=== PATIENT | female | born 1950 | race Caucasian/White ===

== ENCOUNTER → 2023-11-22 15:10 | Outpatient (REF) | payer MEDICARE, BC, SELFPAY | LOC: WDC 15:10 | PROVIDERS: ATTENDING PHYSICIAN Nurse Practitioner Adult Health | DX: Z12.31 Encounter for screening mammogram for malignant neoplasm of breast (principal) | CPT/HCPCS: 77063; 77067 ==

== ENCOUNTER 2024-03-24 14:29 | Emergency (ER) | payer OTHER, SELFPAY ==
[2024-03-24 14:34] VITALS: BP 134/79
--- NOTE | 2024-03-24 14:59 | ED.GENMED ---
ED Provider Triage
<Angie Abdalla SAS DEVELOPER - Last Filed: 03/24/24 15:02>
-
Patient seen by provider in Triage?: Seen in Triage
Attestation: A medical screening examination has been initiated by a qualified medical provider. Based on the assessment performed at this time, it has been determined that an emergent medical condition may exist and the patient has been informed
that further medical evaluation and possible additional diagnostic testing may be needed.
HPI: 74-year-old female with history of HTN, HLD, GERD, presents for shortness of breath for the past 3 days, it came and went but today after breakfast is persistent and feels 'tight in my chest.'
Did have some nausea and diarrhea last week but that has resolved. Denies fever.
GENERAL: Alert , in no apparent distress
EYE: No visual abnormalities.
NECK: Trachea midline
ENT: No visible abnormalities.
LUNGS: No acute respiratory distress
NEUROLOGICAL: Alert and oriented
SKIN: Skin intact. No visible changes.
MUSCULOSKELETAL: Moving extremities normally
PSYCH: Normal and appropriate interaction.
This is a medical evaluation conducted in person to initiate diagnostic evaluation and provide initial therapeutics. Please see further documentation by the treating clinician.
History of Present Illness
<Angie Abdalla SAS DEVELOPER - Last Filed: 03/24/24 15:02>
General
Chief Complaint: Breathing Problem
Time Seen by Provider: 03/24/24 19:07
<Naomie Lemus MD - Last Filed: 03/24/24 19:19>
General
Source: patient
History of Present Illness
History of Present Illness:
74-year-old female who states that last week she had intermittent nausea and dizziness which is now resolved. However, for the past 3 days she has felt like 'I can breathe', but she is not in a deep breath. This is a sensation that is on and off.
She still been able to exercise without difficulty. She notes that she has had recent congestion and cough. She denies chest pain, palpitations, back pain, neck pain, headache, dizziness, fever, chills, leg swelling, recent mobilization, recent
trauma, cancer diagnosis, history of DVT in her family members, or other complaints. ED provider triage note reviewed in which time she described feeling 'tight' in her chest, patient denies this to me.
Past History
<Angie Abdalla SAS DEVELOPER - Last Filed: 03/24/24 15:02>
Past History
ED Past Medical History: None
ED Past Surgical History: None
Social History
Tobacco: Non-smoker
Alcohol: None
Drug: None
Personal:
Living: with family
<Naomie Lemus MD - Last Filed: 03/24/24 19:19>
Past History
ED Past Medical History: Other (Mild hypertension)
Social History
Tobacco: Former smoker
Phy Exam
<Naomie Lemus MD - Last Filed: 03/24/24 19:19>
Physical Exam
Physical Exam:
GENERAL: Alert , in no apparent distress, nontoxic, pleasant, walked up and down emergency department without tachypnea dyspnea or other symptoms
EYE: pupils equal and reactive
NECK: Supple, no significant adenopathy.
ENT: o/p clr, mmm.
CARDIAC: Regular rate and rhythm .
LUNGS: Clear breath sounds bilaterally, no acute respiratory distress, no wheezes/rales/rhonchi, speaks in full sentences easily
ABDOMEN: Soft, without focal tenderness, no r/g, no cvat
NEUROLOGICAL: Alert and oriented, no focal neuro deficits
SKIN: Warm and dry, skin intact.
MUSCULOSKELETAL: No edema, well perfused.
PSYCH: Normal and appropriate interaction.
Course
<Angie Abdalla SAS DEVELOPER - Last Filed: 03/24/24 15:02>
Orders/Labs/Results
Orders:
Orders
03/24/24 14:38
Electrocardiogram (*1) Urgent
Reason for Study: Shortness of Breath
EKG- Treatment ONCE
03/24/24 14:47
Complete Blood Count/With Diff Urgent
Comprehensive Metabolic Panel Urgent
Troponin I Urgent
03/24/24 15:01
CR Chest - 2 Views Urgent
Comment:
Reason For Exam: sob
Abnormal Lab Results
03/24/24
14:47
WBC 4.5 L 10^3/uL
(4.8-10.8)
MCH 31.8 H pg
(27.0-31.0)
Absolute Lymphs (auto) 1.1 L 10^3/uL
(1.2-3.4)
Monocytes % 10.0 H %
(1.7-9.3)
Eosinophils % 6.2 H %
(0-6)
BUN 21 H mg/dl
(7-17)
03/24/24 14:47
03/24/24 14:47
Vital Signs
Initial and Last Documented VS:
Initial Vital Signs
Temp Pulse Resp BP Pulse Ox
98.2 F 69 18 134/79 99
03/24/24 14:34 03/24/24 14:34 03/24/24 14:34 03/24/24 14:34 03/24/24 14:34
Last Documented Vital Signs
Temp Pulse Resp BP Pulse Ox
98.2 F 69 18 134/79 99
03/24/24 14:34 03/24/24 14:34 03/24/24 14:34 03/24/24 14:34 03/24/24 14:34
<Naomie Lemus MD - Last Filed: 03/24/24 19:19>
Orders/Labs/Results
Orders:
Orders
03/24/24 14:38
Electrocardiogram (*1) Urgent
Reason for Study: Shortness of Breath
EKG- Treatment ONCE
03/24/24 14:47
Complete Blood Count/With Diff Urgent
Comprehensive Metabolic Panel Urgent
Troponin I Urgent
03/24/24 15:01
CR Chest - 2 Views Urgent
Comment:
Reason For Exam: sob
Abnormal Lab Results
03/24/24
14:47
WBC 4.5 L 10^3/uL
(4.8-10.8)
MCH 31.8 H pg
(27.0-31.0)
Absolute Lymphs (auto) 1.1 L 10^3/uL
(1.2-3.4)
Monocytes % 10.0 H %
(1.7-9.3)
Eosinophils % 6.2 H %
(0-6)
BUN 21 H mg/dl
(7-17)
03/24/24 14:47
03/24/24 14:47
Vital Signs
Initial and Last Documented VS:
Initial Vital Signs
Temp Pulse Resp BP Pulse Ox
98.2 F 69 18 134/79 99
03/24/24 14:34 03/24/24 14:34 03/24/24 14:34 03/24/24 14:34 03/24/24 14:34
Last Documented Vital Signs
Temp Pulse Resp BP Pulse Ox
98.2 F 69 18 134/79 99
03/24/24 14:34 03/24/24 14:34 03/24/24 14:34 03/24/24 14:34 03/24/24 14:34
<Naomie Lemus MD - Last Filed: 03/24/24 19:19>
Update Note
Update Note:
Patient presents to the Emergency Department with feeling like she is not taking a full breath
Number and Complexity of Problems Addressed at the Encounter
� Chronic conditions affecting care:
� Acute Exacerbation and/or Progression of Chronic Illness:
� Differential Diagnosis includes: But not limited to URI, allergies, bronchitis, PE, pneumonia, etc. etc.
Amount and/or Complexity of Data to be Reviewed and Analyzed
� I performed an independent evaluation of and my interpretation is:
EKG: Read by me, normal sinus rhythm, LAD, no acute ischemia
CT:
Xrays: Read by me, NAD
Laboratory Studies: Generally unremarkable
Other:
� Review of other/old records reveals:
� Clinical information was obtained by an independent historian:
� Prescriptions/Medications Considered but not given:
� Further testing considered but not performed:
Risk of Complications and/or Morbidity or Mortality of Patient Management
� Social determinants of health affecting care:
� Discussion with other providers (PCP, Hospitalists, Consultants, etc):
� Escalation of care including admission/observation vs risk of discharge considered: 7:15 PM patient walked almost the full length of the emergency department and back without any symptoms. Her repeat pulse ox was normal. No
tachycardia, hypoxia, or other signs or symptoms to suggest PE. Highly doubt ACS. Recommend patient follow-up with her primary care doctor and start an antihistamine. She is very comfortable with this plan
ED Attending Note
<Angie Abdalla SAS DEVELOPER - Last Filed: 03/24/24 15:02>
-
Portions of this chart may have been created with voice recognition software.� Occasional wrong word or��sound alike� substitutions may have occurred due to the inherent limitations of voice recognition software.
Discharge Plan
Departure
Patient Disposition: Home (Routine Discharge)
Date of Disposition: 03/24/24
Time of Disposition: 19:18
Patient with high blood pressure during this ER visit?: Yes
Condition: Good
Discharge Problem:
Dyspnea
Instructions: Shortness of breath, BLOOD PRESSURE
Prescriptions:
No Action
amoxicillin-pot clavulanate 1 TABLET tablet
1 tab PO Q12 Qty: 20 0RF
Activity Restrictions/Additional Instructions:
PLEASE SEE YOUR FAMILY DOCTOR SCHEDULED ON SUNDAY. IF YOU DEVELOP INCREASING OR NEW SHORTNESS OF BREATH, FEVER, CHEST PAIN PRESSURE DISCOMFORT, DIZZINESS, ABDOMINAL PAIN, LEG SWELLING, OR OTHER WORRISOME SIGNS, PLEASE RETURN TO THE ER
IMMEDIATELY.
Interventions
Interventions:
*Risk Screen - Suicide Last Done: 03/24/24 14:34
*General Assessment Last Done: 03/24/24 14:34
*Neglect/Abuse Screening Last Done: 03/24/24 14:34
Discharge Date and Time
Print Language: [place]
[2024-03-24 15:11] LABS: % Basophils 0.9 % (0-2); % Eosinophils 6.2 % (0-6); % Lymphocytes 23.7 % (20.5-51.1); % Neutrophils 59.2 % (42.2-75.2); Absolute Eosinophils 0.3 10^3/uL (0-0.7); Absolute Lymphocytes 1.1 10^3/uL (1.2-3.4); Absolute Monocytes 0.5 10^3/uL (0.1-0.6); Absolute Neutrophils 2.7 10^3/uL (1.4-6.5); Hemoglobin 13.6 g/dL (12.0-16.0); Mean Corp Hgb Conc. 33.2 g/dL (33.0-37.0); Mean Corpuscular Hgb 31.8 pg (27.0-31.0); Mean Corpuscular Volume 95.8 fL (81.0-99.0); Mean Platelet Volume 9.4 fL (7.4-10.4); Nucleated Red Blood Cells % 0 %; Platelet Count 236 10^3/uL (130-400); Red Blood Cell Count 4.28 10^6/uL (4.20-5.40); Red Cell Dist. Width 13.2 % (11.5-14.5); White Blood Cell Count 4.5 10^3/uL (4.8-10.8)
[2024-03-24 15:22] LABS: ALT (SGPT) 21 U/L (0-35); AST (SGOT) 28 U/L (14-36); Albumin 4.5 g/dl (3.5-5.0); Alkaline Phosphatase 58 U/L (38-126); Blood Urea Nitrogen 21 mg/dl (7-17); Calcium 9.7 mg/dl (8.4-10.2); Carbon Dioxide 26 mmol/L (22-30); Chloride 103 mmol/L (98-107); Glucose 95 mg/dl (70-99); Potassium 4.6 mmol/L (3.5-5.1); Sodium 137 mmol/L (135-145); Total Bilirubin 0.8 mg/dl (0.2-1.3); Total Protein 6.9 g/dl (6.3-8.2); eGFR > 60.00
[2024-03-24 15:32] LABS: Troponin I < 0.012 ng/ml
[2024-03-24 19:14] VITALS: BP 152/86
== END 2024-03-24 19:22 | disposition home or self-care (01) ==
LOC: EMR 14:29
PROVIDERS: Registered Nurse; EMERGENCY PHYSICIAN Emergency Medicine; FAMILY PHYSICIAN Nurse Practitioner Adult Health
DX: R06.00 Dyspnea, unspecified (principal); E78.5 Hyperlipidemia, unspecified; I10 Essential (primary) hypertension; K21.9 Gastro-esophageal reflux disease without esophagitis
CPT/HCPCS: 99285; 71046; 80053; 84484; 85025; 93005

== ENCOUNTER → 2024-06-12 11:51 | Outpatient (REF) | payer OTHER, SELFPAY ==
[2024-06-12 16:45] LABS: % Basophils 0.7 % (0-2); % Eosinophils 2.5 % (0-6); % Immature Granulocytes 0.4 % (0-0.5); % Lymphocytes 12.1 % (20.5-51.1); % Monocytes 12.9 % (1.7-9.3); % Neutrophils 71.4 % (42.2-75.2); Absolute Basophils 0.1 10^3/uL (0-0.2); Absolute Eosinophils 0.2 10^3/uL (0-0.7); Absolute Lymphocytes 0.9 10^3/uL (1.2-3.4); Absolute Neutrophils 5.4 10^3/uL (1.4-6.5); Hemoglobin 14.4 g/dL (12.0-16.0); Mean Corp Hgb Conc. 32.7 g/dL (33.0-37.0); Mean Corpuscular Hgb 31.6 pg (27.0-31.0); Mean Corpuscular Volume 96.5 fL (81.0-99.0); Mean Platelet Volume 9.4 fL (7.4-10.4); Nucleated Red Blood Cells % 0 %; Platelet Count 299 10^3/uL (130-400); Red Blood Cell Count 4.56 10^6/uL (4.20-5.40); Red Cell Dist. Width 13.1 % (11.5-14.5); White Blood Cell Count 7.5 10^3/uL (4.8-10.8)
[2024-06-12 16:58] LABS: Erythrocyte Sed Rate 41 mm/hour (0-20)
== END ==
LOC: HWLAB 11:51
PROVIDERS: ATTENDING PHYSICIAN Physician Assistant Surgical; FAMILY PHYSICIAN Nurse Practitioner Adult Health
DX: M25.462 Effusion, left knee (principal)
CPT/HCPCS: 36415; 85025; 85652; 86140

== ENCOUNTER → 2024-06-27 06:35 | Outpatient (REF) | payer OTHER, SELFPAY | LOC: MRI 06:35 | PROVIDERS: ATTENDING PHYSICIAN Physician Assistant Surgical; FAMILY PHYSICIAN Nurse Practitioner Adult Health | DX: M25.462 Effusion, left knee (principal); Z96.653 Presence of artificial knee joint, bilateral | CPT/HCPCS: 73721 ==

== ENCOUNTER → 2024-07-03 12:51 | Outpatient (REF) | payer OTHER, SELFPAY | LOC: RCS 12:51 | PROVIDERS: ATTENDING PHYSICIAN Nurse Practitioner Adult Health | DX: R07.89 Other chest pain (principal) | CPT/HCPCS: 93017 ==

== ENCOUNTER → 2024-08-21 07:50 | Outpatient (REF) | payer OTHER, SELFPAY | LOC: RAD 07:50 | PROVIDERS: ATTENDING PHYSICIAN Nurse Practitioner Adult Health | DX: Z78.0 Asymptomatic menopausal state (principal) | CPT/HCPCS: 77080 ==

== ENCOUNTER 2024-10-23 06:14 | Day surgery (SDC) | payer OTHER, SELFPAY | END 2024-10-23 08:27 | disposition home or self-care (01) | LOC: GI 06:14 | PROVIDERS: ATTENDING PHYSICIAN Internal Medicine Gastroenterology | DX: Z12.11 Encounter for screening for malignant neoplasm of colon (principal); K57.30 Diverticulosis of large intestine without perforation or abscess without bleeding; K64.8 Other hemorrhoids; K63.5 Polyp of colon; Z86.0100 Personal history of colon polyps, unspecified | CPT/HCPCS: 45380; 88305 ==

== ENCOUNTER → 2024-11-26 15:38 | Outpatient (REF) | payer OTHER, SELFPAY | LOC: WDC 15:38 | PROVIDERS: ATTENDING PHYSICIAN Nurse Practitioner Adult Health | DX: Z12.31 Encounter for screening mammogram for malignant neoplasm of breast (principal) | CPT/HCPCS: 77063; 77067 ==